=== PATIENT | male | born 1985 | race Caucasian/White ===

== ENCOUNTER 2018-04-13 08:32 | Emergency (ER) | payer BC, SELFPAY ==
--- NOTE | 2018-04-13 08:34 | W.ED.GENAD ---
Discharge Plan Disposition Patient Disposition: HOME Condition: Fair Discharge Details Chief Complaint: GenMedical Clinical Impression: Strep pharyngitis Primary Care Provider: Manolo Mart ED Provider: Jaimee Trejo Home Meds and New Rx's Prescriptions: New penicillin V potassium 500 mg tablet 500 mg PO BID 10 Days Qty: 20 RF: 0 Continued oxycodone 5 MG tablet 5 - 10 mg PO Q4H Qty: 40 RF: 0 Discharge Instructions Instructions: Pharyngitis (ED) Additional Instructions: Encourage hydration. Tylenol and/or Ibuprofen as needed for discomfort. Penicillin as prescribed, even if symptoms improve please take entire course. If you develop difficulty breathing, shortness of breath, inability to stay hydrated, increased swelling or other new/worsening symptoms please seek care urgently once again. If symptoms have not improved next week, please follow up with primary care. Referrals: Manolo Mart [Primary Care Provider] - Medical Decision Making Patient is a 32 year old male, accompanied by his son, with c/c of sore throat x 2 days. States initially he was having fevers/chills but that this has since subsided. Rates pain 8/10. Able to hydrate but states that he has discomfort with swallowing. Denies VALVERDE, otalgia, cough. No GI upset. Appears well hydrated on exam. Bilateral tonsillar swelling with erythema and exudate noted, most consistent with strep pharyngitis. No trismus, unilateral swelling, voice changes, swelling under the tongue or other symptoms concerning for worsening pathology noted. Patient placed on penicillin. Encouraged hydration. Tylenol and/or Ibuprofen as needed for discomfort. Discussed new/worsening symptoms and when to seek care urgently once again. ADvised f/u with PCP in one week for reevaluation if not improved. All questions and concerns were addressed, he is in agreement with this plan. HPI General Mode of arrival: ambulatory. Date/Time Provider Initiated Documentation: 04/13/18 08:34. Limitations to Documentation: no limitations. Information obtained by: patient and family. History of Present Illness 32 year old M presents to the emergency department with the chief complaint of sore throat, described as moderate, with intensity rated at 8. Quality is described as burning, Patient reports no radiation. Patient started experiencing this day(s) (2) and it has been constant. No relieving factors improve symptom(s), No exacerbating factors reported . Patient notes fever/chills (endorses chills initially, none over the past 24 hours); denies chest pain, cough, headaches, loss of appetite, nausea/vomiting, rash and shortness of breath. Patient did receive the following treatments prior to arrival, NSAID Related Data Home Medications Medication Instructions Recorded Confirmed oxycodone 5 - 10 mg PO Q4H #40 tab 07/28/17 penicillin V potassium 500 mg PO BID 10 Days #20 tab 04/13/18 Previous Rx's Medication Instructions Recorded oxycodone 5 - 10 mg PO Q4H #40 tab 07/28/17 penicillin V potassium 500 mg PO BID 10 Days #20 tab 04/13/18 Allergies Allergy/AdvReac Type Severity Reaction Status Date / Time No Known Allergies Allergy Unverified 07/28/17 12:01 Review of Systems Constitutional Reports as per HPI, Reports chills, Denies fatigue, Denies fever(s), Denies headache(s) and Denies poor appetite Eyes Reports as per HPI, Denies eye discharge and Denies irritation ENT Reports as per HPI, Denies ear discharge, Denies otalgia, Denies headache(s), Denies nasal congestion, Denies nasal discharge, Reports sore throat, Denies throat swelling and Denies tongue swelling Cardiovascular Reports as per HPI, Denies chest pain and Denies dyspnea Respiratory Reports as per HPI, Reports cough and Denies dyspnea Gastrointestinal Reports as per HPI, Denies abdominal pain, Denies change in bowel habits, Denies nausea and Denies vomiting Integumentary/Breasts Reports as per HPI and Denies rash Neurologic Denies headache(s) Endocrine Denies fatigue Allergic/Immunologic Denies throat swelling and Denies tongue swelling [facility] Medical History Epididymitis Sebaceous cyst Social History Smoking/Tobacco Use Status: Never Exam Const General: cooperative, healthy appearing, comfortable, no acute distress, well developed and well groomed Nutritional Appearance: average body habitus and well nourished Orientation: alert and awake [facility] Head: normal to inspection, normocephalic and atraumatic Ears: hearing grossly normal bilaterally, external ears normal and TM's normal bilaterally General nose exam: external nose normal and nares normal Face and sinus: normal facial exam, sinuses nontender and face symmetric Mouth: oral mucosae normal, lip normal, tongue normal, oropharynx normal, moist mucous membranes, no muffled voice and no trismus Teeth and gingiva: dentition normal Throat: uvula midline, abnormal tonsil bilaterally erythema, exudates and hypertrophy, no peritonsillar masses and posterior oropharynx abnormal erythema Eyes General: appearance normal, both eyes and all related structures Neck Neck: normal visual inspection, full ROM, no lymphadenopathy and no meningeal signs Resp Effort & Inspection: normal respiratory effort, able to speak in complete sentences and no respiratory distress Auscultation: clear to auscultation bilaterally, no rales, no rhonchi and no wheezes Cardio Rate: regular rate Rhythm: regular rhythm Heart Sounds: S1 normal and S2 normal Skin General skin exam: no rashes or lesions noted Neuro General: alert and awake Cognition: normal cognition Speech: speech normal Gait: normal gait Psych Appearance: grossly normal and well kempt Mental Status: mental status grossly normal Speech and Movement: speech and movement normal
[2018-04-13 08:36] VITALS: BP 144/72; PULSE 72; RESP 16; TEMP 36.6; O2SAT 95
--- NOTE | 2018-04-13 08:59 | ED.GENADUL_ITS ---
Discharge Plan Disposition Patient Disposition: HOME Condition: Fair Discharge Details Chief Complaint: GenMedical Clinical Impression: Strep pharyngitis Primary Care Provider: Manolo Mart ED Provider: Jaimee Trejo Home Meds and New Rx's Prescriptions: New penicillin V potassium 500 mg tablet 500 mg PO BID 10 Days Qty: 20 RF: 0 Continued oxycodone 5 MG tablet 5 - 10 mg PO Q4H Qty: 40 RF: 0 Discharge Instructions Instructions: Pharyngitis (ED) Additional Instructions: Encourage hydration. Tylenol and/or Ibuprofen as needed for discomfort. Penicillin as prescribed, even if symptoms improve please take entire course. If you develop difficulty breathing, shortness of breath, inability to stay hydrated, increased swelling or other new/worsening symptoms please seek care urgently once again. If symptoms have not improved next week, please follow up with primary care. Referrals: Manolo Mart [Primary Care Provider] - Medical Decision Making Patient is a 32 year old male, accompanied by his son, with c/c of sore throat x 2 days. States initially he was having fevers/chills but that this has since subsided. Rates pain 8/10. Able to hydrate but states that he has discomfort with swallowing. Denies VALVERDE, otalgia, cough. No GI upset. Appears well hydrated on exam. Bilateral tonsillar swelling with erythema and exudate noted, most consistent with strep pharyngitis. No trismus, unilateral swelling, voice changes, swelling under the tongue or other symptoms concerning for worsening pathology noted. Patient placed on penicillin. Encouraged hydration. Tylenol and/or Ibuprofen as needed for discomfort. Discussed new/worsening symptoms and when to seek care urgently once again. ADvised f/u with PCP in one week for reevaluation if not improved. All questions and concerns were addressed, he is in agreement with this plan. HPI General Mode of arrival: ambulatory . Date/Time Provider Initiated Documentation: 04/13/18 08:34 . Limitations to Documentation: no limitations . Information obtained by: patient and family . History of Present Illness 32 year old M presents to the emergency department with the chief complaint of sore throat, described as moderate, with intensity rated at 8. Quality is described as burning, Patient reports no radiation. Patient started experiencing this day(s) (2) and it has been constant. No relieving factors improve symptom(s), No exacerbating factors reported . Patient notes fever/chills (endorses chills initially, none over the past 24 hours); denies chest pain, cough, headaches, loss of appetite, nausea/vomiting, rash and shortness of breath. Patient did receive the following treatments prior to arrival, NSAID Related Data Home Medications Medication Instructions Recorded Confirmed oxycodone 5 - 10 mg PO Q4H #40 tab 07/28/17 penicillin V potassium 500 mg PO BID 10 Days #20 tab 04/13/18 Previous Rx's Medication Instructions Recorded oxycodone 5 - 10 mg PO Q4H #40 tab 07/28/17 penicillin V potassium 500 mg PO BID 10 Days #20 tab 04/13/18 Allergies Allergy/AdvReac Type Severity Reaction Status Date / Time No Known Allergies Allergy Unverified 07/28/17 12:01 Review of Systems Constitutional Reports as per HPI, Reports chills, Denies fatigue, Denies fever(s), Denies headache(s) and Denies poor appetite Eyes Reports as per HPI, Denies eye discharge and Denies irritation ENT Reports as per HPI, Denies ear discharge, Denies otalgia, Denies headache(s), Denies nasal congestion, Denies nasal discharge, Reports sore throat, Denies throat swelling and Denies tongue swelling Cardiovascular Reports as per HPI, Denies chest pain and Denies dyspnea Respiratory Reports as per HPI, Reports cough and Denies dyspnea Gastrointestinal Reports as per HPI, Denies abdominal pain, Denies change in bowel habits, Denies nausea and Denies vomiting Integumentary/Breasts Reports as per HPI and Denies rash Neurologic Denies headache(s) Endocrine Denies fatigue Allergic/Immunologic Denies throat swelling and Denies tongue swelling [facility] Medical History Epididymitis Sebaceous cyst Social History Smoking/Tobacco Use Status: Never Exam Const General: cooperative, healthy appearing, comfortable, no acute distress, well developed and well groomed Nutritional Appearance: average body habitus and well nourished Orientation: alert and awake [facility] Head: normal to inspection, normocephalic and atraumatic Ears: hearing grossly normal bilaterally, external ears normal and TM's normal bilaterally General nose exam: external nose normal and nares normal Face and sinus: normal facial exam, sinuses nontender and face symmetric Mouth: oral mucosae normal, lip normal, tongue normal, oropharynx normal, moist mucous membranes, no muffled voice and no trismus Teeth and gingiva: dentition normal Throat: uvula midline, abnormal tonsil bilaterally erythema, exudates and hypertrophy, no peritonsillar masses and posterior oropharynx abnormal erythema Eyes General: appearance normal, both eyes and all related structures Neck Neck: normal visual inspection, full ROM, no lymphadenopathy and no meningeal signs Resp Effort & Inspection: normal respiratory effort, able to speak in complete sentences and no respiratory distress Auscultation: clear to auscultation bilaterally, no rales, no rhonchi and no wheezes Cardio Rate: regular rate Rhythm: regular rhythm Heart Sounds: S1 normal and S2 normal Skin General skin exam: no rashes or lesions noted Neuro General: alert and awake Cognition: normal cognition Speech: speech normal Gait: normal gait Psych Appearance: grossly normal and well kempt Mental Status: mental status grossly normal Speech and Movement: speech and movement normal
== END 2018-04-13 08:54 | disposition home or self-care (01) ==
LOC: ER 08:56
PROVIDERS: Emergency Provider Physician Assistant; PCP Specialist/Technologist Athletic Trainer
DX: J02.0 Streptococcal pharyngitis (principal)
CPT/HCPCS: 87880; 99283

== ENCOUNTER 2018-07-29 06:30 | Emergency (ER) | payer BC, SELFPAY ==
[2018-07-29 06:35] VITALS: BP 131/80; PULSE 59; RESP 16; TEMP 36.8; O2SAT 96
--- NOTE | 2018-07-29 06:43 | W.ED.GENAD ---
Discharge Plan Disposition Patient Disposition: HOME Condition: Stable Discharge Details Chief Complaint: EarProblem Clinical Impression: Left otitis externa Primary Care Provider: Manolo Mart ED Provider: Girish Waters Home Meds and New Rx's Prescriptions: New [id number] 3.5-10,000-1 mg/mL-unit/mL-% drops,suspension 4 drp OT Q8H 7 Days Qty: 10 RF: 0 Discharge Instructions Instructions: Otitis Externa (ED) Medical Decision Making 32 yo male comes in with left ear pain since yesterday. Denies fevers or recent trauma, denies any known foreign body and doesn't use q tips and denies swimming. Both tm's and external mastoid exams are normal, right external auditory canal is normal but the left is swollen and tender on exa consistent with otitis externa. Will start abx drops and advised f/u with pcp and return precautions given Differential Diagnosis aom, otitis externa HPI General Mode of arrival: ambulatory. Date/Time Provider Initiated Documentation: 07/29/18 06:36. Limitations to Documentation: no limitations. Information obtained by: patient. History of Present Illness 32 year old M presents to the emergency department with the chief complaint of left ear pain, described as moderate, Quality is described as aching, and is localized to the head (left ear). Patient reports no radiation. Patient started experiencing this day(s) (1) and it has been constant. No relieving factors improve symptom(s), No exacerbating factors reported . Patient notes no other symptoms.. Patient did receive the following treatments prior to arrival, none Related Data Home Medications Medication Instructions Recorded Confirmed [id number] 4 drp OT Q8H 7 Days #10 ml 07/29/18 Previous Rx's Medication Instructions Recorded [id number] 4 drp OT Q8H 7 Days #10 ml 07/29/18 Allergies Allergy/AdvReac Type Severity Reaction Status Date / Time No Known Allergies Allergy Unverified 07/29/18 06:38 General Stated Complaint: EarProblem DANETTE: 4 Review of Systems Review of Systems All systems reviewed & are unremarkable except as noted in HPI and below Constitutional Denies chills, Denies fever(s) and Denies weakness Cardiovascular Denies chest pain and Denies dyspnea Respiratory Denies cough and Denies dyspnea Gastrointestinal Denies abdominal pain, Denies nausea and Denies vomiting Integumentary/Breasts Denies rash Neurologic Denies weakness [facility] Social History Smoking/Tobacco Use Status: Never Alcohol Intake: never Drug use: Never Substance use type: does not use Do you feel safe at home: Yes Do you feel safe in your relationship?: Yes Exam Const General: no acute distress Orientation: alert [facility] Head: normal to inspection Ears: external ears normal General nose exam: external nose normal Mouth: moist mucous membranes Eyes General: appearance normal, both eyes and all related structures Neck Neck: normal visual inspection Resp Effort & Inspection: normal respiratory effort and able to speak in complete sentences Cardio Rate: regular rate Skin General skin exam: no rashes or lesions noted Neuro General: alert and oriented x3 Extrem General: normal to inspection Psych Mental Status: mental status grossly normal Course Vital Signs Temperature 36.8 C 07/29/18 06:35 Pulse 59 L 07/29/18 06:35 Respiratory Rate 16 07/29/18 06:35 Blood Pressure 131/80 07/29/18 06:35 Pulse Oximetry 96 07/29/18 06:35 Temperature 36.8 C 07/29/18 06:35 Pulse 59 L 07/29/18 06:35 Respiratory Rate 16 07/29/18 06:35 Respiratory Effort Non-Labored 07/29/18 06:37 Blood Pressure 131/80 07/29/18 06:35 Blood Pressure Position Sitting 07/29/18 06:35 Pulse Oximetry 96 07/29/18 06:35 Oxygen Delivery Method Room Air 07/29/18 06:35 Oxygen Flow Rate 0 07/29/18 06:35 Pain Level 7 07/29/18 06:35
== END 2018-07-29 06:53 | disposition home or self-care (01) ==
LOC: ER 06:48
PROVIDERS: Emergency Provider Emergency Medicine; PCP Specialist/Technologist Athletic Trainer
DX: H60.502 Unspecified acute noninfective otitis externa, left ear (principal)
CPT/HCPCS: 99283

== ENCOUNTER 2018-10-03 18:20 | Outpatient (REF) | payer BC, SELFPAY ==
[2018-10-03 22:14] LABS: Abs Immature Grans 0.02 k/cumm (0.0-0.09); Absolute Basophil Count 0.03 k/cumm (0.0-0.2); Absolute Lymphocyte Count 2.23 k/cumm (1.2-3.4); Absolute Monocyte Count 1.15 k/cumm (0.11-0.7); Absolute Neutrophil Count 5.56 k/cumm (1.2-6.7); Basophils % 0.3; Eosinophils % 3.2; HCT 44.4 % (40.0-50.0); HGB 15.6 g/dL (13.5-17.5); Immature Grans % 0.2; Mean Corp. HGB Concentration 35.1 g/dL (32.0-36.0); Mean Corpuscular Hemoglobin 30.2 pg (27.0-33.0); Mean Platelet Volume 11.6 fL (8.0-11.0); Monocytes % 12.4; Neutrophils % 59.9; Platelet Count 299 x1000/uL (130-400); RBC 5.16 m/cumm (4.50-6.00); RBC Distribution Width 12.1 % (11.8-14.1); White Blood Cell Count 9.29 k/cumm (4.4-10.8)
[2018-10-03 22:32] LABS: Hemoglobin A1C 5.5 % (4.5-6.2)
[2018-10-03 22:41] LABS: Cholesterol 222 mg/dL (50-200); HDL Cholesterol 31 mg/dL (40-60); Triglyceride 451 mg/dL (30-150)
[2018-10-03 23:09] LABS: LDL CHOLESTEROL 140 mg/dL (<100)
[2018-10-05 06:52] LABS: Vitamin D 25 Total 22.6 ng/ml (30-100)
== END 2018-10-03 18:40 ==
LOC: NCHCN 18:20
PROVIDERS: PCP Specialist/Technologist Athletic Trainer; Visit Provider Nurse Practitioner Family
DX: Z00.00 Encounter for general adult medical examination without abnormal findings (principal); R45.4 Irritability and anger; Z13.1 Encounter for screening for diabetes mellitus; Z13.29 Encounter for screening for other suspected endocrine disorder; Z13.220 Encounter for screening for lipoid disorders
CPT/HCPCS: 80061; 82306; 83721; 83036; 84443; 85025

== ENCOUNTER 2020-02-13 15:22 | Outpatient (REF) | payer BC, SELFPAY ==
[2020-02-17 07:30] LABS: Patient Race White; SARS-CoV-2 RNA Undetected (Undetected); SARS-CoV-2 Specimen Source Nasal
== END 2020-02-13 15:42 ==
LOC: NCHCN 15:22
PROVIDERS: PCP Specialist/Technologist Athletic Trainer; Visit Provider Physician Assistant Medical
DX: R50.9 Fever, unspecified (principal)
CPT/HCPCS: U0003

== ENCOUNTER 2021-06-30 14:50 | Outpatient (REF) | payer BC, SELFPAY ==
[2021-06-30 14:48] LABS: Calculated LDL 127 mg/dL (<100); Cholesterol 196 mg/dL (<200); HDL Cholesterol 39 mg/dL (40-60); Triglyceride 150 mg/dL (<150)
[2021-06-30 14:50] LABS: Hemoglobin A1C 5.7 % (<5.7)
== END 2021-06-30 14:51 | disposition home or self-care (01) ==
LOC: NCHCN 14:50
PROVIDERS: PCP Specialist/Technologist Athletic Trainer; Visit Provider Nurse Practitioner Family
DX: Z00.00 Encounter for general adult medical examination without abnormal findings (principal); Z13.1 Encounter for screening for diabetes mellitus; Z13.220 Encounter for screening for lipoid disorders
CPT/HCPCS: 80061; 83036

== ENCOUNTER 2023-07-28 13:02 | Outpatient (REF) | payer BC, SELFPAY ==
[2023-07-28 15:18] LABS: Calculated LDL 140 mg/dL (<100); Cholesterol 224 mg/dL (<200); Glucose 109 mg/dL (74-106); HDL Cholesterol 39 mg/dL (40-60); Triglyceride 229 mg/dL (<150)
== END 2023-07-28 13:03 | disposition home or self-care (01) ==
LOC: NCHCN 13:02
PROVIDERS: PCP Specialist/Technologist Athletic Trainer; Visit Provider Nurse Practitioner Family
DX: Z00.00 Encounter for general adult medical examination without abnormal findings (principal)
CPT/HCPCS: 80061; 82947